=== PATIENT | female | born 1970 | race Two or more races ===

== ENCOUNTER 2024-03-03 11:03 | Inpatient (IN) | payer OTHER ==
[~2024-03-03] VITALS: Ht 157.5 cm; Wt 60.6 kg
[2024-03-03 12:29] LABS: Basophils # (auto) 0 10 ^3/uL (0-0.2); Eosinophils # (auto) 0 10 ^3/uL (0-0.8); White Blood Cell 21.5 10^3/uL (4.4-10.8)
[2024-03-03 12:31] LABS: Basophils % (auto) 0.1 % (0.0-2.0); Hemoglobin 10.3 g/dL (12.2-16.2); Lymphocytes # (auto) 0.8 10 ^3/uL (0.4-5.4); Lymphocytes % (auto) 3.8 % (10.0-50.0); Mean Corpuscular Hgb Conc. 31.2 g/dL (32.0-36.0); Mean Corpuscular Volume 60.7 fL (80.0-100.0); Monocytes # (auto) 0.5 10 ^3/uL (0-1.3); Monocytes % (auto) 2.2 % (0.0-12.0); Neutrophils # (auto) 20.2 10 ^3/uL (1.6-8.6); Neutrophils % (auto) 93.9 % (37.0-80.0); Platelet Count (auto) 434 10^3/uL (140-450); Red Blood Cells 5.43 10^6/uL (4.0-5.20); Red Cell Distribution Width 18.8 % (11.8-14.3)
[2024-03-03 12:39] LABS: Alanine Aminotransferase 13 U/L (7-40); Albumin 4.5 g/dL (3.2-4.8); Alkaline Phosphatase 116 U/L (46-116); Anion Gap 10 (5-15); Aspartate Aminotransferase 14 U/L (13-40); BUN/Creatinine Ratio 10.7 (10.0-20.0); Bilirubin, Total 1.1 mg/dL (0.2-1.0); Blood Urea Nitrogen 9 mg/dL (9-23); Calcium 9.3 mg/dL (8.7-10.4); Carbon Dioxide 25 mmol/L (20-31); Chloride 101 mmol/L (98-107); Glucose 96 mg/dL (74-106); Potassium 3.5 mmol/L (3.5-5.1); Sodium 136 mmol/L (136-145); Total Protein 7.5 g/dL (5.7-8.2)
[2024-03-03 13:28] LABS: Urine Bacteria FEW /hpf (None Seen); Urine Blood 3+ /uL (Negative); Urine Clarity Clear (Clear); Urine Color Light-Yellow (Yellow); Urine Protein, UAD 2+ (Negative); Urine Urobilinogen Normal (Negative); Urine WBC 7 /hpf (0 - 5)
[2024-03-03] MEDS: cefTRIAXone 1GM/50ML D5W 50 ML IV ONE (14:31)
[2024-03-03 14:37] VITALS: PULSE 90; RESP 14; O2SAT 97
[2024-03-03] MEDS: SODIUM CHLORIDE 0.9% 1,000 ML IV ONE (15:13)
[2024-03-03] MEDS ORDERED: ONDANSETRON HCL 4 MG/2 ML VIAL IV PRN (15:15)
[2024-03-03] MEDS ORDERED: TEMAZEPAM 15 MG CAP PO PRN (15:15)
[2024-03-03] MEDS: HYDROcodone-ACET 5/325MG TAB PO PRN (15:37)
[2024-03-03] MEDS: KETOROLAC TROMETH 30 MG/ML 1ML VIAL IV ONE (15:38)
[2024-03-03 23:12] VITALS: BP 121/72; PULSE 86; RESP 18; TEMP 98.4; O2SAT 100
[2024-03-04] VITALS (7 sets, daily range): BP systolic 108–116; BP diastolic 62–74; PULSE 88–118; RESP 18–21; TEMP 98.3–98.8; O2SAT 92–97
[2024-03-04 07:36] LABS: Eosinophils # (auto) 0 10 ^3/uL (0-0.8); Eosinophils % (auto) 0.2 % (0.0-7.0); Hematocrit 27.6 % (36.0-46.0); Monocytes # (auto) 0.6 10 ^3/uL (0-1.3); Neutrophils % (auto) 90.9 % (37.0-80.0)
[2024-03-04 07:42] LABS: Basophils # (auto) 0.1 10 ^3/uL (0-0.2); Basophils % (auto) 0.4 % (0.0-2.0); Chloride 108 mmol/L (98-107); Hemoglobin 8.6 g/dL (12.2-16.2); Lymphocytes # (auto) 1.1 10 ^3/uL (0.4-5.4); Lymphocytes % (auto) 5.5 % (10.0-50.0); Mean Corpuscular Volume 61.3 fL (80.0-100.0); Neutrophils # (auto) 18.5 10 ^3/uL (1.6-8.6); Platelet Count (auto) 379 10^3/uL (140-450); Potassium 3.4 mmol/L (3.5-5.1); Red Blood Cells 4.51 10^6/uL (4.0-5.20); Red Cell Distribution Width 18.7 % (11.8-14.3); Sodium 139 mmol/L (136-145); White Blood Cell 20.4 10^3/uL (4.4-10.8)
[2024-03-04 07:43] LABS: Anion Gap 6 (5-15); Calcium 8.6 mg/dL (8.7-10.4); Carbon Dioxide 25 mmol/L (20-31)
[2024-03-04 07:48] LABS: BUN/Creatinine Ratio 16.5 (10.0-20.0); Blood Urea Nitrogen 13 mg/dL (9-23); Glucose 89 mg/dL (74-106)
[2024-03-04] MEDS: cefTRIAXone 1GM/50ML D5W 50 ML IV SCH (11:11)
[2024-03-04] MEDS: ACETAMINOPHEN 325 MG TAB PO PRN (17:16)
[2024-03-05] VITALS (8 sets, daily range): BP systolic 107–142; BP diastolic 69–89; PULSE 91–106; RESP 17–20; TEMP 98.1–100; O2SAT 92–97
[2024-03-05] MEDS: PHENAZOPYRIDINE HCL 100 MG TAB PO SCH (21:55)
[2024-03-06 01:00] VITALS: BP 126/74; PULSE 92; RESP 17; TEMP 98; O2SAT 96
[2024-03-06 05:00] VITALS: BP 127/82; PULSE 91; RESP 94; TEMP 98; O2SAT 95
[2024-03-06 07:46] LABS: Basophils # (auto) 0.1 10 ^3/uL (0-0.2); Hemoglobin 8.6 g/dL (12.2-16.2); Monocytes # (auto) 0.8 10 ^3/uL (0-1.3); Neutrophils # (auto) 8.2 10 ^3/uL (1.6-8.6); Red Blood Cells 4.59 10^6/uL (4.0-5.20)
[2024-03-06 07:53] LABS: Basophils % (auto) 0.5 % (0.0-2.0); Chloride 106 mmol/L (98-107); Eosinophils # (auto) 0.1 10 ^3/uL (0-0.8); Eosinophils % (auto) 0.7 % (0.0-7.0); Hematocrit 27.2 % (36.0-46.0); Mean Corpuscular Hemoglobin 18.7 pg (28.0-32.0); Mean Corpuscular Hgb Conc. 31.6 g/dL (32.0-36.0); Mean Corpuscular Volume 59.2 fL (80.0-100.0); Monocytes % (auto) 7.7 % (0.0-12.0); Neutrophils % (auto) 81.1 % (37.0-80.0); Nucleated Red Blood Cells % 0.1 %; Platelet Count (auto) 401 10^3/uL (140-450); Potassium 3.1 mmol/L (3.5-5.1); Red Cell Distribution Width 18.7 % (11.8-14.3); Sodium 139 mmol/L (136-145); White Blood Cell 10.1 10^3/uL (4.4-10.8)
[2024-03-06 07:54] LABS: Anion Gap 6 (5-15); Carbon Dioxide 27 mmol/L (20-31)
[2024-03-06 07:55] LABS: Calcium 8.7 mg/dL (8.7-10.4)
[2024-03-06 07:59] LABS: BUN/Creatinine Ratio 11.5 (10.0-20.0); Blood Urea Nitrogen 7 mg/dL (9-23); Glucose 94 mg/dL (74-106)
[2024-03-06 09:09] VITALS: BP 135/88; PULSE 89; RESP 16; TEMP 98.2; O2SAT 96
[2024-03-06 09:40] LABS: Hypochromia Moderate; Ovalocytes FEW; Platelet Estimate Adequate
[2024-03-06] MEDS ORDERED: PHEN95TA PO (12:14)
[2024-03-06] MEDS ORDERED: LEVO500T91 PO (12:14)
[2024-03-06 13:01] VITALS: BP 120/73; PULSE 80; RESP 17; TEMP 97.9; O2SAT 94
== END 2024-03-06 15:21 | disposition home or self-care (01) | DRG 690 ==
LOC: ER 11:03 → OVERFLOW 15:21 → CENTRAL 23:00 → TELE-CENTR 03-06 15:15
PROVIDERS: ADMIT Internal Medicine; ATTEND Internal Medicine
DX: N30.00 Acute cystitis without hematuria (principal); I10 Essential (primary) hypertension; D72.829 Elevated white blood cell count, unspecified; N32.89 Other specified disorders of bladder
CPT/HCPCS: 36415; 74176; 76856; 80048; 80053; 81001; 83605; 83690; 85025; 87040; 87086; G0378; J1885